=== PATIENT | male | born 1945 | race Caucasian/White ===

== ENCOUNTER → 2018-05-23 | Outpatient (CLI) | payer MEDICARE ==
[~2018-05-23] MED LIST: ASPIRIN81 M2 PO; CIPRO; DIFLUNISAL500 MG PO; LOPRESSOR; LOPRESSOR100 MG PO; MELOXICAM; MELOXICAM7.5 MG PO; METHOTREXATE; MOBIC15 MG PO; ORPHENADRINE C100 MG PO; PREDNISONE; PROTONIX; SIMVASTATIN; SIMVASTATIN20 MG PO; TREXALL10 MG PO; Z.0.FLOMAX0.4 MG PO; Z.0.LISINOPRIL20 MG PO; Z.0.LOPRESSOR50 MG MT; Z.0.METOPROLOL TART5 PO; Z.0.NEXIUM40 MG PO; Z.0.PLAVIX75 MG PO; Z.0.TRICOR145 MG PO; [UNRECOGNIZED DRUG - OTHER] PO
--- NOTE | 2018-05-23 13:11 | Diagnostic Imaging Report ---
EXAMINATION: PA and lateral views of the chest. COMPARISON: Chest radiograph 03/29/2012 CLINICAL HISTORY: Chest pain DISCUSSION: Lungs are well-inflated. No focal airspace consolidation, pleural effusion, or pneumothorax. Atherosclerotic calcification of the thoracic aorta with otherwise normal cardiomediastinal contour. No pulmonary edema. No acute osseous abnormalities. Unchanged healed fracture deformities of the posterior right fifth and left eighth ribs. Multilevel degenerative disc changes of the thoracic spine. IMPRESSION: No acute cardiopulmonary abnormalities. Signed by: Dr. Adam Schmidt M.D. on 05/23/2018 1:07 PM
== END ==
LOC: RAD 12:19
DX: R06.02 Shortness of breath (principal); R07.2 Precordial pain; G47.33 Obstructive sleep apnea (adult) (pediatric)
CPT/HCPCS: 71046

== ENCOUNTER → 2018-06-22 | Day surgery (SDC) | payer MEDICARE ==
[~2018-06-22] MED LIST changes: +CYMBALTA30 MG; +FENTANYL CITRATE/PF 100MCG/2 ML INJ ONE; +FOLIC ACID1 MG PO; +HYOSCYAMINE SULFATE 0.5 MG/ML INJ ONE; +ISOSORBIDE MONO20 MG PO; +METOCLOPRAMIDE HCL 10 MG/2ML VIAL ONE; +MIDAZOLAM HCL 2 MG/2 ML VIAL ONE; +PROPOFOL IV EMULSION 10 MG/ML 50 ML VIAL ONE; +TOPROL XL50 MG PO; +VSL#3 CAPSULE1 EACH; +ZANTAC150 MG
--- OUTSIDE RECORDS SUMMARY | 2018-06-22 11:03 | XMS REPORT | Clinical Summary ---
Author Author [facility] Organization [place] [facility] Address Unknown Phone Unavailable Care Team Providers Care Machine Set Up Technician Name Role Phone Janessa Zaldivar MD PCP Allergies Comments Active Allergy Reactions Severity Noted Date Severe coughing Lisinopril Other (See 07/09/2017 Comments) Medications End Date Status Medication Sig Dispensed Refills Start Date Active isosorbide mononitrate Take 60 mg by 0 (IMDUR) 60 MG 24 hr mouth daily. tablet Active metoprolol tartrate Take 100 mg 0 (LOPRESSOR) 100 mg tablet by mouth 2 (two) times a day. Active folic acid (FOLVITE) 1 MG Take 1 mg by 0 tablet mouth daily. Active methotrexate 2.5 MG Take 15 mg by 0 tablet mouth once a week. Wednesday Active aspirin (ECOTRIN) 81 MG Take 81 mg by 0 enteric coated tablet mouth daily. Active DULoxetine (CYMBALTA) 60 Take 60 mg by 0 MG capsule mouth daily. Active POTASSIUM ORAL Take by 0 mouth. Active MULTIVITAMIN ORAL Take by 0 mouth. Active cholecalciferol, vitamin Take by 0 D3, (VITAMIN D3 ORAL) mouth. Active ranitidine (ZANTAC) 150 Take 150 mg 0 MG tablet by mouth 2 (two) times a day. Active traMADol (ULTRAM) 50 mg 1 TAB PO Q12 1 tablet H PRN PAIN 8 07/05/2017 Discontinued pregabalin (LYRICA) 75 MG Take 75 mg by 0 capsule mouth 2 (two) times a day. 04/15/2018 Discontinued esomeprazole (NexIUM) 40 Take 40 mg by 0 MG capsule mouth daily before breakfast. 07/10/2017 Discontinued TRAMADOL HCL (TRAMADOL Take 100 mg 0 ORAL) by mouth daily as needed. 04/15/2018 Discontinued celecoxib (CeleBREX) 100 Take 100 mg 0 MG capsule by mouth 2 (two) times a day as needed. 07/09/2017 Discontinued methotrexate, PF, 15 Inject under 0 mg/0.3 mL auto-injector the skin. 04/15/2018 Discontinued tamsulosin (FLOMAX) 0.4 Take 1 0 mg capsule,extended capsule by 8 release 24hr mouth daily. 07/24/2017 HYDROcodone-acetaminophen Take 1 tablet 60 tablet 0 (NORCO) 5-325 mg per by mouth 8 tablet every 6 (six) hours as needed for severe pain for up to 14 days. Max Daily Amount: 4 tablets 08/09/2017 cyclobenzaprine Take 1 tablet 30 tablet 0 (FLEXERIL) 5 mg tablet (5 mg total) 8 by mouth 3 (three) times a day as needed for muscle spasms for up to 30 days. 04/09/2018 methylPREDNISolone follow 21 tablet 0 (MEDROL, BLAINE,) 4 mg package 8 tabletIndications: Status directions post lumbar laminectomy, Radicular pain, Spinal stenosis of lumbar region without neurogenic claudication Active Problems Problem Noted Date Lumbar radiculopathy 07/09/2017 Degeneration of lumbar intervertebral disc 06/18/2017 Overview: Added automatically from request for surgery [id number] Radicular pain 06/18/2017 Overview: Added automatically from request for surgery [id number] Spinal stenosis, lumbar region, with neurogenic claudication 06/18/2017 Overview: Added automatically from request for surgery [id number] Encounters Care Team Description Date Type Specialty Dinah Diallo NP 04/21/2018 Anesthesia General Surgery Event Alicia Cabral MD LUMBAR JONO LEFT L45, [id number] 04/21/2018 Surgery General Surgery Alicia Cabral MD 04/21/2018 Hospital General Surgery Encounter Alicia Cabral MD Pre-op testing (Primary Dx) 04/15/2018 Pre-Admit Pre-Admission Testing Testing Appointment Ty Martínez MD Radicular pain (Primary Dx); Status post lumbar laminectomy; Spinal stenosis of lumbar region without neurogenic claudication 04/04/2018 Office Visit Orthopedic Surgery Ty Martínez MD Neck pain (Primary Dx) 08/23/2017 Orders Only Orthopedic Surgery Ty Martínez MD Status post lumbar laminectomy (Primary Dx); Other osteoarthritis of spine, cervical region 08/19/2017 Office Visit Orthopedic Surgery Ty Martínez MD Status post lumbar laminectomy (Primary Dx) 07/22/2017 Office Visit Orthopedic Surgery Ty Martínez MD LUMBAR POSTERIOR DECOMPRESSION LAMINOTOMY LUMBAR FOUR- FIVE RIGHT. 07/09/2017 Surgery General Surgery Teresa Olivia, AUREA 07/09/2017 Anesthesia General Surgery Event Ty Martínez MD Degeneration of lumbar intervertebral disc; Radicular pain; Spinal stenosis, lumbar region, with neurogenic claudication 07/09/2017 [facility] General Internal Medicine - Encounter 07/10/2017 Ty Martínez MD Pre-op testing 07/05/2017 Hospital Radiology Encounter Ty Martínez MD Pre-op testing (Primary Dx) 07/05/2017 Pre-Admit Pre-Admission Testing Testing Appointment Kay Vasquez 06/25/2017 Telephone Orthopedic Surgery [place] Bennett 06/25/2017 Telephone Pre-Admission Testing after 06/21/2017 Immunizations Name Dates Previously Given Next Due Influenza, Unspecified 01/24/2017 Pneumococcal, Unspecified 01/24/2017 Family History Medical History Relation Name Comments Cancer Father BLADDER, PROSTATE, SPREAD TO SPINE Cancer Mother COLON Relation Name Status Comments Father BLADDER AND PROSTATE Mother COLON CA Social History Date Tobacco Use Types Packs/Day Years Used Never Smoker Smokeless Tobacco: Never Used Alcohol Use Drinks/Week oz/Week Comments Yes OCASSIONAL PER PT Sex Assigned at Date Recorded Not on file Industry Job Start Date Occupation Not on file Not on file Not on file Travel End Travel History Travel Start No recent travel history available. Last Filed Vital Signs Time Taken Vital Sign Reading 04/21/2018 10:00 AM STATE EDIT[facility] Blood Pressure 168/90 04/21/2018 10:00 AM STATE EDITOR Pulse 63 04/21/2018 9:36 AM STATE EDITOR Temperature 36.3 C (97.3 F) 04/21/2018 10:00 AM STATE EDITOR Respiratory Rate 24 04/21/2018 10:00 AM STATE EDITOR Oxygen Saturation 97% - Inhaled Oxygen - Concentration 04/21/2018 6:21 AM STATE EDITOR Weight 119 kg (262 lb) 04/21/2018 6:21 AM STATE EDITOR Height 180.3 cm (5' 11") 04/21/2018 6:21 AM STATE EDITOR Body Mass Index 36.54 Plan of Treatment Health Maintenance Due Date Last Done Comments COLON CANCER SCREENING 1997 SHINGLES VACCINES (#1) 1997 PNEUMOCOCCAL 2012 POLYSACCHARIDE VACCINE AGE 65 AND OVER INFLUENZA VACCINE 11/24/2017 01/24/2017 65+ PNEUMOCOCCAL VACCINE 01/24/2018 01/24/2017 (2 of 2 - PPSV23) Procedures Comments Procedure Name Priority Date/Time Associated Diagnosis OR FL < 1 HOUR Routine 04/21/2018 9:20 AM STATE EDITOR ECG PRE/POST OP Routine 04/15/2018 Pre-op testing 9:26 AM STATE EDITOR XR LUMBAR SPINE 2 OR 3 VW Routine 04/04/2018 Status post lumbar 9:57 AM STATE EDITOR laminectomy OR FL > 1 HOUR Routine 07/09/2017 10:49 AM CDT ARTERIAL LINE Routine 07/09/2017 9:21 AM CDT Procedure Note - Duke Werner MD - 07/09/2017 9:21 AM CDT Arterial line Performed by: DUKE WERNER Authorized by: DUKE WERNER Patient Location: OR Staff: Anesthesio logist: DUKE WERNER Performed by: Anesthesio logist Pre-proced ure: patient identified , IV checked, site and side verified, risks and benefits discussed, procedure verified, surgical consent complete, patient position confirmed, monitors and equipment checked and pre-op evaluation complete MSBT: antiseptic used, all elements of maximal sterile barrier technique followed, hand hygiene performed, cap/gown used by other personnel and solutions labeled Indication s: Indication s: hemodynami c monitoring Anesthesia : Anesthesia : General Procedure Details: Arterial Line placement: Placed post induction Line placement site: Radial Line placement side: Right Arterial line gauge: 20 G Number of attempts: 1 Ultrasound guidance used: No Post-proce dure: Post-proce dure: Sterile dressing applied Post procedure circulatio n, sensation, movement: Normal Patient tolerance: Patient tolerated the procedure well with no immediate complicati ons ARTERIAL LINE Routine 07/09/2017 8:53 AM CDT Procedure Note - Zeb Hernández CRNA - 07/09/2017 8:53 AM CDT Arterial line Performed by: ZEB HERNÁNDEZ Authorized by: DUKE WERNER Patient Location: OR Start Time: 07/09/2017 7:55 AM End Time: 07/09/2017 7:59 AM Staff: Anesthesio logist: DUKE WERNER/C RNA/AA: ZEB HERNÁNDEZ Performed by: Anesthesio logist Pre-proced ure: patient identified , IV checked, site and side verified, risks and benefits discussed, procedure verified, surgical consent complete, patient position confirmed, monitors and equipment checked and pre-op evaluation complete MSBT: antiseptic used and hand hygiene performed TIme Out Performed: 07/09/2017 7:54 AM Indication s: Indication s: hemodynami c monitoring Anesthesia : Anesthesia : General Procedure Details: Arterial Line placement: Placed post induction Line placement site: Radial Line placement side: Right Arterial line gauge: 20 G Number of attempts: 1 Ultrasound guidance used: No Post-proce dure: Post-proce dure: Sterile dressing applied Post procedure circulatio n, sensation, movement: Normal Patient tolerance: Patient tolerated the procedure well with no immediate complicati ons AK AN ELECTIVE Routine 07/09/2017 ENDOTRACHEAL AIRWAY 8:50 AM CDT Procedure Note - Zeb Hernández CRNA - 07/09/2017 8:50 AM CDT Airway Date/Time: 07/09/2017 7:46 AM Performed by: ZEB HERNÁNDEZ Authorized by: DUKE WERNER Location: OR Urgency: Elective Difficult Airway: No Anesthesio logist: DUKE WERNER/C IRIS/AA: ZEB HERNÁNDEZ Performed by: resident/C IRIS/AA Preoxygena lisa with 100% O2: Yes C-spine Precaution s Maintained Throughout : Yes Mask Ventilatio n: Easy mask Final Airway Type: Endotrache al airway Final Endotrache al Airway: ETT Technique Used: Direct laryngosco py Devices/Me thods Used in Placement: Intubatin g stylet Insertion Site: Oral Blade Type: Layne Laryngosco pe Blade/Vide olaryngosc ope Blade Size: 3 ETT Size (mm): 8.0 Measured from: Lips ETT to Lips (cm): 23 Placement Verified by: CO2 detection and equal breath sounds Laryngosco pic view: Grade IIb - view of arytenoids or posterior of glottis only Rapid Sequence Induction (RSI): No Modified RSI: Yes Number of Attempts at Approach: 1 Atraumati c DL; lips/teeth /gums unchanged. URINALYSIS SCREEN AND Timed 07/09/2017 Degeneration of lumbar MICROSCOPY, WITH REFLEX 7:55 AM CDT intervertebral disc TO CULTURE Radicular pain Spinal stenosis, lumbar region, with neurogenic claudication URINE CULTURE Timed 07/09/2017 7:55 AM CDT POC GLUCOSE Routine 07/09/2017 7:05 AM CDT XR CHEST 2 VW Routine 07/05/2017 Pre-op testing 10:50 AM CDT ZZESTIMATED GFR Routine 07/05/2017 10:22 AM CDT PROTHROMBIN TIME WITH INR Routine 07/05/2017 Pre-op testing 10:22 AM CDT PARTIAL THROMBOPLASTIN Routine 07/05/2017 Pre-op testing TIME (PTT) 10:22 AM CDT COMPREHENSIVE METABOLIC Routine 07/05/2017 Pre-op testing PANEL 10:22 AM CDT HC COMPLETE BLD COUNT Routine 07/05/2017 Pre-op testing W/AUTO DIFF 10:22 AM CDT after 06/21/2017 Results * OR FL < 1 Hour (04/21/2018 9:20 AM STATE EDITOR) Narrative Performed At EXAMINATION:OR FL 1 HOUR [facility] CLINICAL HISTORY: Intraoperative COMPARISON:None. IMPRESSION: C-arm fluoroscopy over 1 hour was provided in the OR for the referring physician. A radiologist was not present during the procedure. Refer to the Operative report issued by the performing provider for procedure details. H [id number] Procedure Note Interface, Radiology Results Incoming - 04/21/2018 3:42 PM STATE EDITOR EXAMINATION: OR FL 1 HOUR CLINICAL HISTORY: Intraoperative COMPARISON: None. IMPRESSION: C-arm fluoroscopy over 1 hour was provided in the OR for the referring physician. A radiologist was not present during the procedure. Refer to the Operative report issued by the performing provider for procedure details. [id number] Performing Organization Address [facility] Phone Number [facility] [address] [place] [address] * ECG Pre/Post Op (04/15/2018 9:26 AM STATE EDITOR) Ventricular rate 51 [facility] Atrial rate 51 [facility] AK interval 130 [facility] QRSD interval 100 [facility] QT interval 484 [facility] QTC interval 446 [facility] P axis 1 56 [facility] QRS axis 1 49 [facility] T wave axis 115 [facility] EKG impression Sinus bradycardia-Nonspecific [facility] MUSE T wave abnormality-Abnormal ECG-No previous ECGs available- Narrative Performed At Performing Organization Address [facility] Phone Number [facility] MUSE [address] [place] [address] * XR Lumbar Spine 2 Or 3 Vw (04/04/2018 9:57 AM STATE EDITOR) Narrative Performed At [facility] X-ray lumbar spine multiple views.Multilevel facet degeneration disc space degeneration and bridging osteophytes. Worse at the L3-4, L4-5 and L5-S1 segment. No fractures or bony erosions visualized. Laminotomy defect is visualized. Flexion extension views did not show any translation at the surgical levels or any other level. No pars fracture visualized. Performing Organization Address [facility] Phone Number [facility] [address] [place] [address] * OR FL > I Hour (07/09/2017 10:49 AM CDT) Narrative Performed At EXAMINATION:OR FL 1 HOUR [facility] CLINICAL HISTORY:None provided IMPRESSION: Fluoroscopy was provided. No radiologist present.Please see procedure report for discussion of procedure, findings and fluoroscopic time. [facility]-[id number] Procedure Note Interface, Radiology Results Incoming - 07/09/2017 10:56 AM CDT EXAMINATION: OR FL 1 HOUR CLINICAL HISTORY: None provided IMPRESSION: Fluoroscopy was provided. No radiologist present. Please see procedure report for discussion of procedure, findings and fluoroscopic time. [facility]-[id number] Performing Organization Address [facility] Phone Number [facility] [address] [place] [address] * Urinalysis screen and microscopy, with reflex to culture (07/09/2017 7:55 AM CDT) Specimen site Catheterized [facility] DEPARTMENT OF PATHOLOGY AND GENOMIC MEDICINE Color, UA Yellow [facility] DEPARTMENT OF PATHOLOGY AND GENOMIC MEDICINE Appearance, UA Clear [facility] DEPARTMENT OF PATHOLOGY AND GENOMIC MEDICINE Specific gravity, UA 1.015 1.001 - 1.030 [facility] DEPARTMENT OF PATHOLOGY AND GENOMIC MEDICINE pH, UA 7.0 5.0 - 9.0 [facility] DEPARTMENT OF PATHOLOGY AND GENOMIC MEDICINE Protein, UA Negative Negative [facility] DEPARTMENT OF PATHOLOGY AND GENOMIC MEDICINE Glucose, UA Negative Negative [facility] DEPARTMENT OF PATHOLOGY AND GENOMIC MEDICINE Ketones, UA Negative Negative [facility] DEPARTMENT OF PATHOLOGY AND GENOMIC MEDICINE Bilirubin, UA Negative Negative [facility] DEPARTMENT OF PATHOLOGY AND GENOMIC MEDICINE Blood, UA Negative Negative [facility] DEPARTMENT OF PATHOLOGY AND GENOMIC MEDICINE Nitrite, UA Negative Negative [facility] DEPARTMENT OF PATHOLOGY AND GENOMIC MEDICINE Urobilinogen, UA <2.0 <2.0 E.U./dL [facility] DEPARTMENT OF PATHOLOGY AND GENOMIC MEDICINE Leukocyte esterase, UA Negative Negative [facility] DEPARTMENT OF PATHOLOGY AND GENOMIC MEDICINE Epithelial cells, UA <1 /HPF [facility] DEPARTMENT OF PATHOLOGY AND GENOMIC MEDICINE WBC, UA 4 (H) 0 - 1 /HPF [facility] DEPARTMENT OF PATHOLOGY AND GENOMIC MEDICINE RBC, UA 1 0 - 1 /HPF [facility] DEPARTMENT OF PATHOLOGY AND GENOMIC MEDICINE Bacteria, UA Few None seen [facility] DEPARTMENT OF PATHOLOGY AND GENOMIC MEDICINE Yeast, UA None seen [facility] DEPARTMENT OF PATHOLOGY AND GENOMIC MEDICINE Yeast with pseudohyphae, None seen [facility] DEPARTMENT OF UA PATHOLOGY AND GENOMIC MEDICINE Specimen Urine - Urine, catheter Performing Organization Address [facility] [place] [address] PATHOLOGY AND GENOMIC MEDICINE * Urine culture (07/09/2017 7:55 AM CDT) Urine culture SEE COMMENTComment: [facility] DEPARTMENT OF Bacteriuria screen negative. PATHOLOGY AND GENOMIC MEDICINE Performing Organization Address [facility] [place] [address] PATHOLOGY AND GENOMIC MEDICINE * POC glucose (07/09/2017 7:05 AM CDT) POC glucose 101 (H) 65 - 99 mg/dL [facility] DEPARTMENT OF Comment: PATHOLOGY AND No Action Needed GENOMIC MEDICINE Meter ID: [id number] Brim Ironer Hand: Cassy Kathy Performing Organization Address City/[facility]/Zipcode Phone Number [facility] [place] [address] [place] [address] PATHOLOGY AND GENOMIC MEDICINE * XR Chest 2 Vw (07/05/2017 10:50 AM CDT) Narrative Performed At EXAMINATION:XR CHEST 2 VW [facility] CLINICAL HISTORY:Z01.818 Encounter for other preprocedural examination, pre op testing IMPRESSION: Heart and mediastinum are normal. Lungs are clear. There is a healed fracture of the right fifth rib. [facility]-[id number] Procedure Note Interface, Radiology Results Incoming - 07/05/2017 10:57 AM CDT EXAMINATION: XR CHEST 2 VW CLINICAL HISTORY: Z01.818 Encounter for other preprocedural examination, pre op testing IMPRESSION: Heart and mediastinum are normal. Lungs are clear. There is a healed fracture of the right fifth rib. [facility]-[id number] Performing Organization Address [facility] Phone Number [facility] [address] [place] [address] * Estimated GFR (07/05/2017 10:22 AM CDT) GFR Non Af Amer 83 mL/min/1.73 m2 [facility] DEPARTMENT OF PATHOLOGY AND GENOMIC MEDICINE GFR Af Amer >90 mL/min/1.73 m2 [facility] DEPARTMENT OF Comment: PATHOLOGY AND Chronic kidney disease: <60 GENOMIC MEDICINE mL/min/1.73m2 Kidney failure: <15 mL/min/1.73m2 The estimated GFR is calculated from the IDMS-traceable Modification of Diet in Renal Disease Equation. The accuracy of the calculation is poor when the creatinine is normal. Calculated values >90 mL/min/1.73m2 are not reported. This equation has not been validated in children (<18 years), women, the elderly (>70 years), or ethnic groups other than Caucasians and Americans. Specimen Plasma specimen Performing Organization Address [facility]/Zipcode Phone Number [facility] [place] [address] [place] [address] PATHOLOGY AND GENOMIC MEDICINE * Partial thromboplastin time, activated (07/05/2017 10:22 AM CDT) PTT 29.5 23.0 - 36.0 sec [facility] DEPARTMENT OF Comment: PATHOLOGY AND PTT therapeutic range for GENOMIC MEDICINE unfractionated heparin is 61.0-112.0 seconds which corresponds to Anti-Xa 0.3-0.7 U/ml. Specimen Blood Performing Organization Address City/[facility]/[place] [address] PATHOLOGY [address] [employer] [facility] * Prothrombin time with INR (07/05/2017 10:22 AM CDT) Prothrombin time 14.3 12.0 - 15.0 sec [facility] DEPARTMENT OF PATHOLOGY AND GENOMIC MEDICINE INR 1.1 [facility] DEPARTMENT OF Comment: PATHOLOGY AND The International Normalized [facility] Ratio (INR) is a therapeutic monitoring tool for patients who are stable on oral anticoagulant therapy. An INR of 2.0-3.0 is suggested for deep vein thrombosis/pulmonary embolism. Specimen Blood Performing Organization Address [facility] [place] [address] PATHOLOGY [address] [employer] [facility] * CBC with platelet and differential (07/05/2017 10:22 AM CDT) WBC 8.8 4.5 - 11.0 k/uL [facility] DEPARTMENT OF PATHOLOGY AND GENOMIC MEDICINE RBC 4.88 4.40 - 6.00 m/uL [facility] DEPARTMENT OF PATHOLOGY AND GENOMIC MEDICINE HGB 14.2 14.0 - 18.0 g/dL [facility] DEPARTMENT OF PATHOLOGY AND GENOMIC MEDICINE HCT 43.9 41.0 - 51.0 % [facility] DEPARTMENT OF PATHOLOGY AND GENOMIC MEDICINE MCV 90.0 82.0 - 100.0 fL [facility] DEPARTMENT OF PATHOLOGY AND GENOMIC MEDICINE MCH 29.1 27.0 - 34.0 pg [facility] DEPARTMENT OF PATHOLOGY AND GENOMIC MEDICINE MCHC 32.3 31.0 - 37.0 g/dL [facility] DEPARTMENT OF PATHOLOGY AND GENOMIC MEDICINE RDW - SD 46.0 37.0 - 55.0 fL [facility] DEPARTMENT OF PATHOLOGY AND GENOMIC MEDICINE MPV 9.8 6.9 - 11.0 fL [facility] DEPARTMENT OF PATHOLOGY AND GENOMIC MEDICINE Platelet count 265 150 - 400 K/uL [facility] DEPARTMENT OF PATHOLOGY AND GENOMIC MEDICINE Nucleated RBC 0.00 /100 WBC [facility] DEPARTMENT OF PATHOLOGY AND GENOMIC MEDICINE Neutrophils 71.4 (H) 39.0 - 69.0 % [facility] DEPARTMENT OF PATHOLOGY AND GENOMIC MEDICINE Lymphocytes 15.5 (L) 25.0 - 45.0 % [facility] DEPARTMENT OF PATHOLOGY AND GENOMIC MEDICINE Monocytes 9.9 0.0 - 10.0 % [facility] DEPARTMENT OF PATHOLOGY AND GENOMIC MEDICINE Eosinophils 1.9 0.0 - 5.0 % [facility] DEPARTMENT OF PATHOLOGY AND GENOMIC MEDICINE Basophils 0.8 0.0 - 1.0 % [facility] DEPARTMENT OF PATHOLOGY AND GENOMIC MEDICINE Immature granulocytes 0.5 0.0 - 1.0 % [facility] DEPARTMENT OF PATHOLOGY AND GENOMIC MEDICINE Specimen Blood Performing Organization Address City/[facility] Phone Number [address] [place] [address] PATHOLOGY AND GENOMIC MEDICINE * Comprehensive metabolic panel (07/05/2017 10:22 AM CDT) Sodium 140 135 - 148 mEq/L [facility] DEPARTMENT OF PATHOLOGY AND GENOMIC MEDICINE Potassium 3.9 3.5 - 5.0 mEq/L [facility] DEPARTMENT OF PATHOLOGY AND GENOMIC MEDICINE Chloride 98 98 - 112 mEq/L [facility] DEPARTMENT OF PATHOLOGY AND GENOMIC MEDICINE CO2 30 24 - 31 mEq/L [facility] DEPARTMENT OF PATHOLOGY AND GENOMIC MEDICINE Anion gap 12 7 - 15 mEq/L [facility] DEPARTMENT OF Comment: PATHOLOGY AND Starting from July GENOMIC MEDICINE , anion gap calculation no longer incorporates potassium. Please note the change. BUN 15 8 - 23 mg/dL [facility] DEPARTMENT OF PATHOLOGY AND GENOMIC MEDICINE Creatinine 0.9 0.7 - 1.2 mg/dL [facility] DEPARTMENT OF PATHOLOGY AND GENOMIC MEDICINE Glucose 111 (H) 65 - 99 mg/dL [facility] DEPARTMENT OF PATHOLOGY AND GENOMIC MEDICINE Calcium 8.9 8.8 - 10.2 mg/dL [facility] DEPARTMENT OF PATHOLOGY AND GENOMIC MEDICINE Protein 7.2 6.3 - 8.3 g/dL [facility] DEPARTMENT OF PATHOLOGY AND GENOMIC MEDICINE Albumin 4.1 3.5 - 5.0 g/dL [facility] DEPARTMENT OF PATHOLOGY AND GENOMIC MEDICINE A/G ratio 1.3 0.7 - 3.8 [facility] DEPARTMENT OF PATHOLOGY AND GENOMIC MEDICINE Alkaline phosphatase 93 40 - 129 U/L [facility] DEPARTMENT OF PATHOLOGY AND GENOMIC MEDICINE AST 22 10 - 50 U/L [facility] DEPARTMENT OF PATHOLOGY AND GENOMIC MEDICINE ALT 31 5 - 50 U/L [facility] DEPARTMENT OF PATHOLOGY AND GENOMIC MEDICINE Total bilirubin 0.5 0.2 - 1.2 mg/dL [facility] DEPARTMENT OF PATHOLOGY AND GENOMIC MEDICINE Specimen Plasma specimen Performing Organization Address City/[facility] Phone Number [address] [place] [address] PATHOLOGY AND GENOMIC MEDICINE after 06/21/2017 Insurance Payer Benefit Subscriber ID Type Phone Address Plan / Group MEDICARE MEDICARE xxxxxxxxxx Medicare [place], [place] PART A AND B AARP AARP xxxxxxxxxxx Commercial SUPPLEMENT Advance Directives Patient has advance care planning documents, and code status on file. For more i nformation, please contact: Ruiz Hagan [address] [place] [address] Date Inactivated Comments Code Status Date Activated 07/10/2017 1:42 PM Full Code 07/09/2017 1:39 PM Code Status decision reached by: Patient
--- OUTSIDE RECORDS SUMMARY | 2018-06-22 11:03 | XMS REPORT ---
Author Author [facility] Address Unknown Phone Unavailable Care Team Providers Care [employer] Dean Name Role Phone HERMELINDA LIVINGSTON Unavailable Unavailable AVILES, LYLYHEJESSI Unavailable Unavailable Problems This patient has no known problems. Allergies, Adverse Reactions, Alerts This patient has no known allergies or adverse reactions. Medications This patient has no known medications. Results Test Description Test Time Test Comments Text Results Atomic Results Result Comments CHEST 2 VIEWS 2018-05-23 13:04:00 [place] [address] Patient Name: FRANK COLON MR #: [id number] : 1945 Age/Sex: 72/M Req #: [id number] Adm Physician: Ordered by: HERMELINDA LIVINGSTON MD Report #: [id number] Location: [facility] Room/Bed: Procedure: [id number] DX/CHEST 2 VIEWS Exam Date: 05/23/18 Exam Time: 1247 REPORT STATUS: Signed EXAMINATION: PA and lateral views of the chest. COMP ARISON: Chest radiograph 03/29/2012 CLINICAL HISTORY: Chest pain DISCUSSION: Lungs are well-inflated. No focal airspace consolidation, pleural effusion, or pneumothorax. Atherosclerotic calcification of the thoracic aorta with otherwise normal cardiomediastinal contour. No pulmonary edema. No acute osseous abnormalities. Unchanged healed fracture deformities of the posterior right fifth and left eighth ribs. Multilevel degenerative disc changes of the thoracic spine. IMPRESSION: No acute cardiopulmonary abnormalities. Signed by: Dr. Vickie Dumont M.D. on 05/23/2018 1:07 PM Dictated By: VICKIE DUMONT MD 06 Transcribed By: VINAY on 05/23/182 COPY TO: HERMELINDA LIVINGSTON MD ABDOMEN-1VIEW (KUB) [place] [address] Patient Name: FRANK COLON MR #: [id number] : 1945 Age/Sex: 71/M Req #: [id number] Adm Physician: JOSIE AVILES MD Ordered by: JOSIE AVILES MD Report #: [id number] Location: [facility] Room/Bed: [facility] Procedure: [id number] DX/ABDOMEN-1VIEW (KUB) Exam Date: Exam Time: REPORT STATUS: Signed PROCEDURE: X-RAY ABDOMEN - KUB COMPARISON: CT abdomen and pelvis 01/16/2017. INDICATIONS: acute colitis, bloating, FINDINGS: The bowel gas pattern shows several dilated, air-filled loops of small bowel to a maximum caliber of 4.5 cm. Gas is also noted within the sigmoid colon. No alonso pneumoperitoneum or organomegaly. Surgical clips project over the right upper quadrant of the abdomen, compatible with prior cholecystectomy. Nonobstructing renal calculi are seen to better advantage on comparison CT. No acute osseous abnormality. Degenerative disc changes and facet arthropathy of the lumbar spine. CONCLUSION: Nonspecific small bowel dilatation, similar in degree to that noted on CT abdomen 01/16/2017. Findings may reflect ileus or partial small bowel obstruction. Dictated by: Vickie Dumont M.D. on 01/18/2017 at 13:35 Electronically approved by: Vickie Dumont M.D. on 01/18/2017 at 13:35 Dictated By: VICKIE DUMONT MD 34 Transcribed By: NAKIA on 01/18/17 1335 COPY TO: JOSIE AVILES MD CT ABDOMEN/PELVIS W [place] [address] Patient Name: FRANK COLON MR #: [id number] : 1945 Age/Sex: 71/M Req #: [id number] Adm Physician: JOSIE AVILES MD Ordered by: DIEGO POSADAS MD Report #: [id number] Location: [facility] Room/Bed: [place] [address] Procedure: [id number] CT/CT ABDOMEN/PELVIS W Exam Date: 01/16/17 Exam Time: 1450 REPORT STATUS: Signed EXAMINATION: CT of the abdomen and pelvis with contrast. TECHNIQUE: Helical CT images of the abdomen and pelvis were performed from the lung bases to the lesser trochanters after the intravenous administration of 100 cc of Isovue 300 and the oral administration of none. Coronal and sagittal reformatted images were obtained. COMPARISON: None. CLINICAL HISTORY:Diffuse abdominal pain and diarrhea DISCUSSION: ABDOMEN/PELVIS: LOWER THORAX:Unremarkable. HEPATOBILIARY: No focal hepatic lesions. No intra-or extrahepatic biliary ductal dilation. Cholecystectomy. SPLEEN: No splenomegaly. PANCREAS: No focal masses or ductal dilatation. ADRENALS: No adrenal nodules. KIDNEYS/URETERS: Bilateral nonobstructing renal calculi (approximately 4 bilaterally. No hydronephrosis. PELVIC ORGANS/BLADDER: The bladder is normal. PERITONEUM/RETROPERITONEUM: No free air or fluid. LYMPH NODES: No intra-abdominal, retroperitoneal, pelvic or inguinal lymphadenopathy. VESSELS: Basilar calcifications. GI TRACT: Fluid- filled loops of prominent proximal small bowel measuring up to 4.5 cm. No visualized transition point. BONES AND SOFT TISSUE: No bony destructive lesions. No soft tissue abnormalities. IMPRESSION: Dilated fluid-filled small bowel loops without obstruction/transition point. Nonobstructing bilateral renal calculi Signed by: Dr. Rosas Zimmer M.D. on 01/16/2017 4:05 PM Dictated By: ROSAS ZIMMER MD 1608 Transcribed By: VINAY on 01/16/17 1600 COPY TO: DIEGO POSADAS MD
[2018-06-22 15:00] VITALS: BP 182/91
[2018-06-22 15:00] LABS: WBC,FECAL (FECAL LACTOFERRIN) NEGATIVE (NEGATIVE)
--- NOTE | 2018-06-22 22:59 | Operative Report ---
DATE OF PROCEDURE: 06/22/2018 SURGEON: Alexis Zaldivar MD PROCEDURES: EGD with biopsies and colonoscopy with biopsies. INDICATIONS FOR EGD: Recurrent nausea and vomiting. INDICATIONS FOR COLONOSCOPY: Colorectal cancer screening, chronic diarrhea. MEDICATION: The patient was done under MAC. Please see anesthesiologist's note. PROCEDURE IN DETAIL: With the patient in the left lateral decubitus position, a flexible fiberoptic Olympus gastroscope was introduced into the esophagus under direct visualization without any difficulty. There was some patchy erythema noted in the distal esophagus. The scope was advanced with ease into the stomach and mucosa overlying the antrum and the body revealed some patchy erythema and sqrx-wp-[id number] edema and biopsies were obtained and sent to stain for H pylori. An approximately 1 cm submucosal nodule was noted in the proximal body along the posterior wall and that was biopsied. An additional submucosal nodule was noted in the proximal antrum along the posterior wall and that was biopsied also. The pylorus was of normal contour and shape. It was intubated with ease and the scope was advanced all the way to the 2nd portion of the duodenum. Minute superficial ulcers were noted in the proximal 2nd portion and the duodenal bulb without active bleeding or stigmata of recent hemorrhage. The scope was then withdrawn back into the stomach and retroflexed. Mucosa overlying the fundus and the cardia appeared to be within normal limits. The scope was then straightened out. The stomach was decompressed. The scope was subsequently withdrawn and the patient tolerated the procedure well. IMPRESSION: 1. Mild distal esophagitis. 2. Gastritis biopsied. Biopsies sent to stain for Helicobacter pylori. 3. Approximately 1 cm submucosal nodule, proximal body, posterior wall, biopsied. 4. Submucosal nodule, proximal antrum, posterior wall approximately 1 cm in size, biopsied. 5. Several superficial minute duodenal ulcers without active bleeding or stigmata of recent hemorrhage. PLAN: Followup histology. Initiate Protonix 40 mg one p.o. q.a.m. a.c. The patient was then turned around. After adequate lubrication of the anal canal, a flexible fiberoptic Olympus colonoscope was inserted into the rectum with ease and advanced all the way to the cecum. Mucosa overlying the cecum appeared to be within normal limits. The scope was then withdrawn slowly. Diverticular disease was noted to involve the ascending and the proximal transverse colon, and some minimal scattered diverticula were noted in the rest of the colon. Mucosa overlying the left colon revealed some patchy mild inflammatory changes and multiple random biopsies were obtained. The scope was then retroflexed into the distal rectum and moderate-sized internal hemorrhoids were noted. None of which was actively bleeding. The scope was then straightened out, it was subsequently withdrawn after securing an adequate stool specimen that was sent for the appropriate stool studies. The patient tolerated the procedure well. IMPRESSION: 1. Diverticulosis. 2. Mild patchy left-sided colitis. 3. Internal hemorrhoids, none actively bleeding. PLAN: Followup histology. Initiate VSL #3, one p.o. daily and Bentyl 10 mg one p.o. t.i.d. The patient might benefit from a followup colonoscopy in 5-10 years. Alexis Zaldivar MD [facility] [place] /[id number] cc: Mio Zaldivar MD
[2018-06-23 14:07] LABS: C DIFFICILE TOXIN A&B AMP PROB NEGATIVE (NEGATIVE)
== END | disposition home or self-care (01) ==
LOC: OR 10:57
PROVIDERS: ATTEND Internal Medicine Gastroenterology
DX: K29.70 Gastritis, unspecified, without bleeding (principal); K21.0 Gastro-esophageal reflux disease with esophagitis; K31.89 Other diseases of stomach and duodenum; K26.9 Duodenal ulcer, unspecified as acute or chronic, without hemorrhage or perforation; K51.50 Left sided colitis without complications; K57.30 Diverticulosis of large intestine without perforation or abscess without bleeding; K64.8 Other hemorrhoids; R53.1 Weakness; I25.10 Atherosclerotic heart disease of native coronary artery without angina pectoris; I25.2 Old myocardial infarction; I10 Essential (primary) hypertension; R00.1 Bradycardia, unspecified; M06.9 Rheumatoid arthritis, unspecified; Z88.8 Allergy status to other drugs, medicaments and biological substances; Z79.82 Long term (current) use of aspirin; Z79.84 Long term (current) use of oral hypoglycemic drugs; Z68.36 Body mass index [BMI] 36.0-36.9, adult; Z96.659 Presence of unspecified artificial knee joint; Z95.5 Presence of coronary angioplasty implant and graft; Z80.0 Family history of malignant neoplasm of digestive organs
CPT/HCPCS: 43239; 45380; 83630; 83993; 87045; 87177; 87328; 87493; 88305; 88312; J1980; J2250; J2704; J2765; 45378

== ENCOUNTER 2019-05-11 07:19 | Observation (INO) | payer MEDICARE ==
--- NOTE | 2019-05-09 15:45 | Diagnostic Imaging Report ---
EXAMINATION: CHEST 2 VIEWS INDICATION: Pre-operative COMPARISON: Chest radiograph of 05/15/2018 FINDINGS: LINES/TUBES:None LUNGS:The lungs are well-inflated. No focal consolidation or pulmonary edema. PLEURA:No pleural effusion or pneumothorax. MEDIASTINUM:The cardiomediastinal silhouette appears normal in size and shape. BONES/SOFT TISSUES:No acute osseous injury. ABDOMEN:No free air under the diaphragm. IMPRESSION: No focal pneumonia or pulmonary edema. Signed by: Naya Grimaldo MD on 05/09/2019 3:42 PM
[2019-05-09 16:11] LABS: BASOPHILS # (AUTO) 0.1 (0.0-0.1); EOSINOPHILS # (AUTO) 0.2 (0.0-0.4); EOSINOPHILS % 2.6 % (0.0-6.0); HEMATOCRIT 49.5 % (38.2-49.6); HEMOGLOBIN 15.8 g/dL (14.0-18.0); LYMPHOCYTES # (AUTO) 2.3 (1.0-3.2); MEAN CORPUSCULAR HEMOGLOBIN 29.5 pg (28-32); MEAN CORPUSCULAR HGB CONC 31.9 g/dL (31-35); MEAN CORPUSCULAR VOLUME 92.4 fL (81-99); MONOCYTES # (AUTO) 1.1 (0.2-0.8); MONOCYTES % 12.1 % (4.4-11.3); NEUTROPHILS % 57.1 % (38.7-80.0); PLATELET COUNT 213 x10e3/uL (140-360); RED BLOOD COUNT 5.36 x10e6/uL (4.3-5.7); RED CELL DISTRIBUTION WIDTH 13.6 % (11.7-14.4)
[2019-05-09 16:22] LABS: INR 0.93
[2019-05-09 16:23] LABS: PARTIAL THROMBOPLASTIN TIME 29.2 seconds (23.8-35.5)
[2019-05-09 16:27] LABS: ANION GAP 14.6 mmol/L (8-16); BLOOD UREA NITROGEN 17 mg/dL (7-26); BUN/CREATININE RATIO 17 (6-25); CALCIUM 9.4 mg/dL (8.4-10.2); CARBON DIOXIDE 27 mmol/L (22-29); CHLORIDE 103 mmol/L (98-107); CREATININE, SERUM 1.01 mg/dL (0.72-1.25); EST GLOMERULAR FILTRATION RATE > 60 ML/MIN (60-); GLUCOSE 88 mg/dL (74-118); POTASSIUM 4.6 mmol/L (3.5-5.1); SODIUM 140 mmol/L (136-145)
[~2019-05-11] VITALS: Ht 180.3 cm; Wt 122.0 kg
[~2019-05-11 07:19] MED LIST changes: +COLESTIPOL HCL1 GM PO; +DICYCLOMINE HCL10 MG PO; -FENTANYL CITRATE/PF 100MCG/2 ML INJ ONE; -HYOSCYAMINE SULFATE 0.5 MG/ML INJ ONE; +LIDOCAINE HCL (LTA) 4 ML SOLN ONE; -METOCLOPRAMIDE HCL 10 MG/2ML VIAL ONE; -MIDAZOLAM HCL 2 MG/2 ML VIAL ONE; +PANTOPRAZOLE SO40 MG PO; -PROPOFOL IV EMULSION 10 MG/ML 50 ML VIAL ONE
[2019-05-11] MEDS ORDERED: THROMBIN FOR SOLN 5,000 UNIT VIAL ONE (08:16)
[2019-05-11] MEDS ORDERED: BACITRACIN 50,000 UNIT VIAL ONE (08:16)
[2019-05-11] MEDS ORDERED: LIDOCAINE 1% W/EPINEPHRINE 20 ML VIAL ONE (08:16)
[2019-05-11] MEDS ORDERED: CEFAZOLIN SOD 1 GM/NS 50ML 100 ML IV ONE (08:31)
[2019-05-11] MEDS ORDERED: OXYCODONE/ACETAMINOPHEN 5-325 1 EACH TABLET PO PRN (11:30)
[2019-05-11] MEDS ORDERED: ACETAMINOPHEN 325 MG TAB PO PRN (11:30)
[2019-05-11] MEDS ORDERED: MAGNESIUM/ALUMINUM/SIMETHICONE 30 ML UDC PO PRN (11:30)
[2019-05-11] MEDS ORDERED: PROMETHAZINE HCL (IM) 25 MG/ML VIAL IM PRN (11:30)
[2019-05-11] MEDS ORDERED: CARISOPRODOL 350 MG TAB PO PRN (11:30)
[2019-05-11] MEDS ORDERED: SUGAMMADEX SODIUM 200 MG/2 ML VIAL IV ONE (11:43)
[2019-05-11] MEDS ORDERED: FENTANYL CITRATE/PF 100MCG/2 ML INJ ONE ×2 (12:36→18:18)
[2019-05-11 13:35] VITALS: BP 179/83
[2019-05-11 13:40] VITALS: BP 179/83
--- NOTE | 2019-05-11 13:45 | NUR ---
PT ARRIVE TO UNIT RESP EVEN AND UNLABORED AT THIS TIME NO DISTRESS NOTED, PT HAS NO C/O PAIN AT THIS TIME, PT ABLE TO AMBULATE FROM STRETCHER TO BED, IV FLUIDS INTACT, PT ORIENTED TO ROOM AND CALL LIGHT, BED IN LOWEST POSITION, BED RAILS UP TIMES X 2. CALL LIGHT IN REACH.
[2019-05-11] MEDS ORDERED: MORPHINE SULFATE INJ 10 MG/ML IM PRN (14:00)
--- NOTE | 2019-05-11 14:56 | Operative Report ---
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 PROCEDURES: 1. C5-C6 anterior cervical diskectomy and microsurgical osteophyte resection and allograft fusion, 12160. 2. Preparation of MTF corticocancellous allograft, 45148. 3. C5-C6 anterior cervical fusion with Synthes DPM plate, 09897. ANESTHESIA: General. INDICATIONS: The patient is a 73-year-old man, who presents with C5-C6 spondylosis with myelopathy and was taken to surgery for anterior cervical decompression and fusion. PROCEDURE IN DETAIL: After induction of anesthesia, the patient was placed on the operating table in supine position. The right side of neck was prepped and draped in sterile fashion. The fluoroscopic C-arm was positioned in cross-table lateral orientation. A transverse incision was created in the right side of neck, superimposed on the C5-C6 disk space as determined by fluoroscopy. The platysma was divided in line with the incision. A subplatysmal dissection was carried out and avascular plane of dissection was developed medially in sternocleidomastoid muscle and was followed medial to the carotid sheath to the anterior border of cervical spine and the deep cervical fascia was opened. The esophagus was retracted to the left. The attachments of longus colli muscles to the anterolateral aspects of vertebral bodies of C5 and C6 were divided. The anterior longitudinal ligament was resected. Afton posts were inserted into C5 and C6. The Afton distractor was used to distract the disk space. The anterior annulus of the disk was incised with a #11 blade and the contents of this were thoroughly evacuated with angled curettes and pituitary rongeurs. The posterior osteophytes were meticulously drilled with a 2 mm cutting bur on a high-speed drill until they were completely removed. The posterior annulus of the disk, herniated disk material, and the posterior longitudinal ligament were resected layer by layer until the dura was fully exposed and decompressed. The medial aspects of the uncinate processes were resected to further expose any compressed origins of the corresponding C6 nerve roots. After satisfactory decompression had been achieved, the endplates were prepared for fusion. The disk space was sized and found to be 9 mm in height. A piece of MTF corticocancellous allograft measuring 9 mm in thickness was selected and loaded onto a corresponding Synthes ZPN plate. The construct was inserted into the C5-C6 disk space under distraction and fluoroscopic guidance. The distraction was released and the distraction posts were removed. The plate was then screwed to the endplates of C5 and C6 with two pairs of 16 mm screws. All four screws were locked and excellent construct was obtained. The wound was copiously irrigated with bacitracin solution, meticulous hemostasis was secured. Retractor was removed. The platysma was closed with 3-0 Vicryl sutures. The skin was closed with 4-0 Vicryl sutures in subcuticular fashion. Steri-Strips and dressing were applied. The patient was awakened, extubated, and taken to postanesthesia care in stable condition. No intraoperative complications were encountered. Estimated blood loss was 10 mL. Colt العلي MD PP/ROBERTO /[id number]
[2019-05-11] MEDS: COLESTIPOL HCL 1 G TAB PO SCH (16:09)
[2019-05-11] MEDS: CEFAZOLIN SOD 1 GM/NS 50ML 50 ML IV SCH ×2 (16:09→20:56)
[2019-05-11] MEDS: LACTATED RINGER'S 1,000 ML IV SCH ×2 (16:09→21:17)
[2019-05-11] MEDS: DICYCLOMINE HCL 10 MG CAP PO SCH ×2 (16:09→20:56)
[2019-05-11 16:43] VITALS: BP 150/67
[2019-05-11] MEDS: ONDANSETRON HCL INJ 2MG/ML 2ML 2 MG/ML VIAL IV PRN ×2 (17:04→21:17)
[2019-05-11] MEDS: HYDROMORPHONE 2MG/ML 2 MG/ML ML IV PRN ×2 (17:04→21:11)
[2019-05-11] MEDS ORDERED: SEVOFLURANE INHAL SOLN 250 ML PEN BTL ONE (17:52)
[2019-05-11] MEDS ORDERED: ACETAMINOPHEN 1000 MG/100 ML IV ONE (17:52)
[2019-05-11] MEDS ORDERED: SUCCINYLCHOLINE CHLORIDE 20 MG/ML 10ML VIAL ONE (17:52)
[2019-05-11] MEDS ORDERED: ONDANSETRON HCL INJ 2MG/ML 2ML 2 MG/ML VIAL ONE (17:52)
[2019-05-11] MEDS ORDERED: LIDOCAINE HCL 2% LOCAL INJ 5 ML SDV VIAL INJ ONE (17:52)
[2019-05-11] MEDS ORDERED: EPHEDRINE SULFATE INJ 50 MG/ML VIAL ONE (17:52)
[2019-05-11] MEDS ORDERED: LIDOCAINE HCL 2% JELLY 5 ML TUBE ONE (17:52)
[2019-05-11] MEDS ORDERED: DEXAMETHASONE SOD PHOS INJ 4 MG/ML VIAL ONE (17:52)
[2019-05-11] MEDS ORDERED: GLYCOPYRROLATE INJ 0.2 MG/ML VIAL ONE (17:52)
[2019-05-11] MEDS ORDERED: PROPOFOL IV EMULSION 10 MG/ML 20 ML VIAL ONE (17:52)
[2019-05-11] MEDS ORDERED: NEOSTIGMINE 1 MG/ML 10ML VIAL ONE (17:52)
[2019-05-11] MEDS ORDERED: ROCURONIUM BROMIDE 10 MG/ML 5ML VIAL ONE (17:52)
[2019-05-11] MEDS ORDERED: MIDAZOLAM HCL 2 MG/2 ML VIAL ONE (18:18)
--- NOTE | 2019-05-11 19:12 | NUR ---
RECEIVED BEDSIDE SHIFT REPORT FROM PREVIOUS NURSE. CALL LIGHT WITHIN REACH. PATIENT IN THE CHAIR. PATIENT IS A&OX3 AND AMBULATES.
--- NOTE | 2019-05-11 19:46 | NUR ---
report given to oncoming nurse pt stable at this time.
[2019-05-11 20:00] VITALS: BP 196/88
--- NOTE | 2019-05-11 20:00 | NUR ---
CALLED AND TALKED TO DR. HYDE ABOUT PATIENT HAVING A BLOOD PRESSURE OF 196/88 AND NOT HAVING ANY PRN BLOOD PRESSURE MEDICATION. DR HYDE ORDERED HYDRALAZINE 10 MG, PO PRN Q6H FOR SYSTOLIC >170
[2019-05-11 20:42] VITALS: BP 196/88
[2019-05-11] MEDS: HYDRALAZINE HCL 10 MG TAB PO PRN (20:57)
[2019-05-11] MEDS ORDERED: FAMOTIDINE 20 MG TAB PO SCH (21:00)
[2019-05-11] MEDS ORDERED: ZOLPIDEM TARTRATE 5 MG TAB PO PRN (21:00)
[2019-05-12] VITALS: BP 201/91
--- NOTE | 2019-05-12 01:00 | NUR ---
WENT TO THE PATIENT'S ROOM AND SAW THE PATIENT SITTING AT THE EDGE OF THE BED. RETOOK THE BLOOD PRESSURE ON THE LEFT ARM AND IT WAS 174/79 AND PULSE WAS 77. PATIENT IN NO PAIN OR DISTRESS.
[2019-05-12 04:00] VITALS: BP 186/82
[2019-05-12] MEDS: HYDRALAZINE HCL 10 MG TAB PO PRN (05:23)
[2019-05-12] MEDS: CEFAZOLIN SOD 1 GM/NS 50ML 50 ML IV SCH (05:24)
[2019-05-12] MEDS: LACTATED RINGER'S 1,000 ML IV SCH (05:29)
--- NOTE | 2019-05-12 06:28 | NUR ---
PATIENT LEFT VIA WHEELCHAIR FOR C-SPINE 2 VIEW. PATIENT IN NO PAIN OR DISTRESS.
--- NOTE | 2019-05-12 06:35 | NUR ---
PATIENT ARRIVED BACK TO THE UNIT VIA WHEELCHAIR. NO DISTRESS NOTED
--- NOTE | 2019-05-12 07:00 | NUR ---
RECEIVED PATIENT RESTING IN BED NO S/S OF DISTRESS. BED LOW, WHEELS LOCKED, SIDE RAILS X2. CALL LIGHT IN REACH WILL CONTINUE TO MONITOR PATIENT.
--- NOTE | 2019-05-12 07:10 | NUR ---
GAVE BEDSIDE SHIFT REPORT TO ONCOMING NURSE. CALL LIGHT WITHIN REACH. PATIENT IN THE CHAIR. PATIENT IN NO PAIN OR DISTRESS. PATIENT IS A&OX3 AND AMBULATES
[2019-05-12] MEDS: COLESTIPOL HCL 1 G TAB PO SCH (08:06)
[2019-05-12] MEDS: DICYCLOMINE HCL 10 MG CAP PO SCH (08:06)
[2019-05-12 08:07] VITALS: BP 193/86
[2019-05-12 08:33] VITALS: BP 193/86
[2019-05-12] MEDS ORDERED: METOPROLOL SUCCINATE 50 MG TAB XL PO SCH (09:00)
[2019-05-12] MEDS ORDERED: ISOSORBIDE MONONITRATE 20 MG TAB PO SCH (09:00)
[2019-05-12] MEDS ORDERED: PANTOPRAZOLE SOD 40 MG TABEC PO SCH (09:00)
[2019-05-12] MEDS ORDERED: DULOXETINE HCL 30 MG DELAYED RELEASE PO SCH (09:00)
--- NOTE | 2019-05-12 09:07 | Diagnostic Imaging Report ---
EXAMINATION: C-SPINE 2 VIEWS AP LATERAL INDICATION: Postoperative COMPARISON: None FINDINGS: There are postoperative findings of anterior cervical discectomy and fusion at C6-7. Alignment appears near-anatomic, with mild straightening of the normal cervical lordosis. There are multilevel severe degenerative changes with disc space narrowing, uncovertebral hypertrophy, and large osteophyte formation. No acute fracture or dislocation. Mild thickening and small amount of air in the prevertebral soft tissues, likely postoperative. The minimally visualized lung apices appear clear. IMPRESSION: Anatomic alignment status post anterior cervical discectomy and fusion at C6-7. Severe multilevel degenerative changes. Signed by: Naya Grimaldo MD on 05/12/2019 9:05 AM
[2019-05-12] MEDS ORDERED: NORCO 7.5-3251 EACH PO (09:23)
--- NOTE | 2019-05-12 10:09 | NUR ---
removed patients iv. catheter tip intact and pressure dressing applied.
--- NOTE | 2019-05-12 10:13 | NUR ---
PATIENT DISCHARGED FROM FACILITY. PATIENT GATHERED ALL PERSONAL BELONGINGS, DISCHARGE INSTRUCTIONS, AND FOLLOW UP INFORMATION. PATIENT LEFT UNIT IN WHEELCHAIR AND WENT HOME VIA PRIVATE AUTO.
== END 2019-05-12 10:13 | disposition home or self-care (01) ==
LOC: OR 07:19 → PACU V 11:34 → MED/SURG 13:35
PROVIDERS: ADMIT Neurological Surgery; ATTEND Neurological Surgery
DX: M50.022 Cervical disc disorder at C5-C6 level with myelopathy (principal); I10 Essential (primary) hypertension; E78.5 Hyperlipidemia, unspecified; M19.90 Unspecified osteoarthritis, unspecified site; I25.10 Atherosclerotic heart disease of native coronary artery without angina pectoris; Z90.49 Acquired absence of other specified parts of digestive tract; Z96.651 Presence of right artificial knee joint; Z90.10 Acquired absence of unspecified breast and nipple; Z79.82 Long term (current) use of aspirin; K21.9 Gastro-esophageal reflux disease without esophagitis; G47.33 Obstructive sleep apnea (adult) (pediatric); Z87.442 Personal history of urinary calculi
CPT/HCPCS: 20931; 22551; 22845; 36415; 71046; 72040; 80048; 85025; 85610; 85730; 86850; 86900; 88304; 93005; C1713 ×2; C9359; G0378 ×2; J0131; J0330; J0690 ×2; J1100; J1170; J2001 ×2; J2250; J2405; J2704; J2710; J3010; J7121 ×2; S0164; 77003

== ENCOUNTER → 2019-06-08 | Outpatient (CLI) | payer MEDICARE ==
[~2019-06-08] MED LIST changes: -LIDOCAINE HCL (LTA) 4 ML SOLN ONE; +NORCO 7.5-3251 EACH PO
--- NOTE | 2019-06-08 13:04 | Diagnostic Imaging Report ---
EXAM: SPINE CERVICAL AP LAT FLEX EXT DATE: 06/08/2019 11:35 AM INDICATION: Cervical fusion COMPARISON: 05/12/2019 FINDINGS: Again identified are postsurgical changes from prior anterior cervical discectomy and fusion at C5-C6. There is mild straightening of the normal cervical lordosis, cervical alignment is otherwise unremarkable. There is no evidence for acute fracture or dislocation. No focal lytic or blastic abnormality is identified. There are multilevel degenerative changes of the cervical spine with uncovertebral spurring, osteophyte production, and facet arthropathy. Findings are similar to the recent prior examination. The prevertebral soft tissues are unremarkable. IMPRESSION: Stable post surgical changes from anterior cervical fusion as detailed above. Signed by: Dr. Grady Bobo MD on 06/08/2019 1:02 PM
== END ==
LOC: RAD 11:17
PROVIDERS: ATTEND Neurological Surgery
DX: M50.20 Other cervical disc displacement, unspecified cervical region (principal); M43.22 Fusion of spine, cervical region
CPT/HCPCS: 72050

== ENCOUNTER → 2020-03-05 | Day surgery (SDC) | payer MEDICARE ==
[2020-02-29 14:32] LABS: BASOPHILS # (AUTO) 0.1 (0.0-0.1); BASOPHILS % 0.8 % (0.0-1.0); EOSINOPHILS # (AUTO) 0.2 (0.0-0.4); EOSINOPHILS % 1.8 % (0.0-6.0); HEMOGLOBIN 15.2 g/dL (14.0-18.0); LYMPHOCYTES # (AUTO) 2.4 (1.0-3.2); LYMPHOCYTES % 20.2 % (18.0-39.1); MEAN CORPUSCULAR HGB CONC 32.3 g/dL (31-35); MEAN CORPUSCULAR VOLUME 92.7 fL (81-99); MONOCYTES # (AUTO) 1.4 (0.2-0.8); NEUTROPHILS # (AUTO) 7.7 (2.1-6.9); NEUTROPHILS % 64.4 % (38.7-80.0); PLATELET COUNT 225 x10e3/uL (140-360); RED BLOOD COUNT 5.07 x10e6/uL (4.3-5.7)
[~2020-03-05] MED LIST changes: +ALLOPURINOL100 MG PO; +FAMOTIDINE20 MG PO; +FENTANYL CITRATE/PF 100MCG/2 ML INJ ONE; +FOLIC ACID PO; +LIDOCAINE HCL 2% LOCAL INJ 5 ML SDV VIAL INJ ONE; +METHOTREXATE2.5 MG PO; +METOCLOPRAMIDE HCL 10 MG/2ML VIAL ONE; +MIDAZOLAM HCL 2 MG/2 ML VIAL ONE; +MULTI-VITAMIN1 EACH PO; +PANTOPRAZOLE 40 MG 10ML VIAL ONE; +POTASSIUM PO; +PROPOFOL IV EMULSION 10 MG/ML 20 ML VIAL ONE; +SODIUM CHLORIDE 0.9% 50ML 50 ML ONE; +SUCRALFATE1 GM PO; +VIT D3 PO
[2020-03-05 14:30] VITALS: BP 143/80
--- NOTE | 2020-03-05 15:27 | Operative Report ---
DATE OF PROCEDURE: 03/05/2020 SURGEON: Alexis Zaldivar MD PROCEDURE: EGD with biopsies. INDICATIONS FOR EGD: Acid reflux. MEDICATIONS: The patient was done under MAC, please see anesthesiologist's note. PROCEDURE IN DETAIL: With the patient in left lateral decubitus position, a flexible fiberoptic Olympus gastroscope was introduced into the esophagus under direct visualization without any difficulty. An extrinsic compression was noted to extend from 26 to 28 cm from the incisors. The mucosa overlying the distal esophagus revealed some patchy areas of erythema. Minute tongues of velvety red mucosa were noted to extend proximally from the GE junction and biopsies were obtained to rule out Balderas. The scope was then advanced with ease into the stomach. Mucosa overlying the antrum and the body revealed some patchy erythema and kpas-fo-mzuvlrul edema. Biopsies were obtained and sent to stain for H. pylori. A minute polyp was noted in the distal body that was partially excised with the cold biopsy forceps. An approximately 5 mm submucosal nodule, antrum was biopsied. Pylorus was of normal contour and shape, it was intubated with ease and the scope was advanced all the way to the second portion of the duodenum. Biopsies were obtained from the proximal second portion and the duodenal bulb to rule out sprue. The scope was then withdrawn back into the stomach and retroflexed, mucosa overlying the fundus and cardia appeared to be within normal limits. The scope was then straightened out, it was subsequently withdrawn. The patient tolerated the procedure well. IMPRESSION: 1. Extrinsic compression esophagus extending from 24 to 26 cm from the incisors. 2. Distal esophagitis, mild. 3. Rule out Balderas esophagus. 4. Gastritis, biopsied, biopsies sent to stain for H. pylori. 5. Approximately 5 mm submucosal nodule, antrum biopsied. 6. Gastric polyp, distal body partially excised with cold biopsy forceps. 7. Rule out sprue. PLAN: 1. Follow up histology. 2. Increase Protonix to 40 mg one p.o. a.c. b.i.d. 3. The patient will need a CT scan of the chest to delineate the nature of the extrinsic compression of the esophagus described in the body of the report. Alexis Zaldivar MD [facility] /[id number] cc: Mio Zaldivar MD
== END | disposition home or self-care (01) ==
LOC: OR 08:03
PROVIDERS: ATTEND Internal Medicine Gastroenterology
DX: K26.9 Duodenal ulcer, unspecified as acute or chronic, without hemorrhage or perforation (principal); K21.00 Gastro-esophageal reflux disease with esophagitis, without bleeding; K20.90 Esophagitis, unspecified without bleeding; K29.60 Other gastritis without bleeding; I10 Essential (primary) hypertension; M06.9 Rheumatoid arthritis, unspecified; M19.90 Unspecified osteoarthritis, unspecified site; Z20.828 Contact with and (suspected) exposure to other viral communicable diseases; Z87.19 Personal history of other diseases of the digestive system; K31.7 Polyp of stomach and duodenum
CPT/HCPCS: 36415; 43239; 85025; 88305; 88312; 93005; C9113; J2001; J2250; J2704; J2765; J3010; U0002

== ENCOUNTER → 2020-03-25 | Outpatient (CLI) | payer MEDICARE ==
[~2020-03-25] MED LIST changes: -FENTANYL CITRATE/PF 100MCG/2 ML INJ ONE; +IOPAMIDOL 370 MG/ML 200 ML INFUS..BTL INJ ONE; -LIDOCAINE HCL 2% LOCAL INJ 5 ML SDV VIAL INJ ONE; -METOCLOPRAMIDE HCL 10 MG/2ML VIAL ONE; -MIDAZOLAM HCL 2 MG/2 ML VIAL ONE; -PANTOPRAZOLE 40 MG 10ML VIAL ONE; -PROPOFOL IV EMULSION 10 MG/ML 20 ML VIAL ONE
[2020-03-25 17:25] LABS: BLOOD UREA NITROGEN 18 mg/dL (7-26); BUN/CREATININE RATIO 15 (6-25); CREATININE, SERUM 1.17 mg/dL (0.72-1.25); EST GLOMERULAR FILTRATION RATE > 60 ML/MIN (60-)
== END ==
LOC: CT 16:34
PROVIDERS: ATTEND Internal Medicine Gastroenterology
DX: K76.0 Fatty (change of) liver, not elsewhere classified (principal); I25.10 Atherosclerotic heart disease of native coronary artery without angina pectoris
CPT/HCPCS: 36415; 71260; 82565; 84520; Q9967

== ENCOUNTER → 2020-11-06 | Day surgery (SDC) | payer MEDICARE ==
[2020-11-05 10:09] LABS: BASOPHILS # (AUTO) 0.1 (0.0-0.1); BASOPHILS % 0.6 % (0.0-1.0); EOSINOPHILS # (AUTO) 0.3 (0.0-0.4); EOSINOPHILS % 2.3 % (0.0-6.0); HEMATOCRIT 46.9 % (38.2-49.6); LYMPHOCYTES # (AUTO) 1.5 (1.0-3.2); LYMPHOCYTES % 13.9 % (18.0-39.1); MEAN CORPUSCULAR HEMOGLOBIN 30.3 pg (28-32); MEAN CORPUSCULAR VOLUME 94.7 fL (81-99); MONOCYTES # (AUTO) 1.4 (0.2-0.8); MONOCYTES % 12.5 % (4.4-11.3); NEUTROPHILS # (AUTO) 7.6 (2.1-6.9); NEUTROPHILS % 70.1 % (38.7-80.0); PLATELET COUNT 222 x10e3/uL (140-360); RED BLOOD COUNT 4.95 x10e6/uL (4.3-5.7); RED CELL DISTRIBUTION WIDTH 14.9 % (11.7-14.4)
[~2020-11-06] MED LIST changes: +FENTANYL CITRATE/PF 100MCG/2 ML INJ ONE; +FLOMAX0.4 MG PO; -IOPAMIDOL 370 MG/ML 200 ML INFUS..BTL INJ ONE; +LIDOCAINE HCL 2% LOCAL INJ 5 ML SDV VIAL INJ ONE; +MIDAZOLAM HCL 2 MG/2 ML VIAL ONE; +OXYBUTYNIN CHLOR5 MG PO; +PROPOFOL IV EMULSION 10 MG/ML 20 ML VIAL ONE; +RITUXAN10 MG/1 ML IV; +SIMETHICONE 40 MG/0.6 ML BTL ONE; -SODIUM CHLORIDE 0.9% 50ML 50 ML ONE; +ZINC PO
[2020-11-06 08:29] VITALS: BP 144/72
== END | disposition home or self-care (01) ==
LOC: ENDO 05:49
PROVIDERS: ATTEND Internal Medicine Gastroenterology
DX: K22.2 Esophageal obstruction (principal); K31.7 Polyp of stomach and duodenum; K29.70 Gastritis, unspecified, without bleeding; K20.90 Esophagitis, unspecified without bleeding; K31.89 Other diseases of stomach and duodenum; K21.9 Gastro-esophageal reflux disease without esophagitis; G47.33 Obstructive sleep apnea (adult) (pediatric); I25.10 Atherosclerotic heart disease of native coronary artery without angina pectoris; I25.2 Old myocardial infarction; E78.5 Hyperlipidemia, unspecified; I10 Essential (primary) hypertension; M54.9 Dorsalgia, unspecified; H91.90 Unspecified hearing loss, unspecified ear; Z95.5 Presence of coronary angioplasty implant and graft; M06.9 Rheumatoid arthritis, unspecified; Z88.8 Allergy status to other drugs, medicaments and biological substances; Z01.810 Encounter for preprocedural cardiovascular examination; Z01.812 Encounter for preprocedural laboratory examination; Z68.38 Body mass index [BMI] 38.0-38.9, adult; Z85.828 Personal history of other malignant neoplasm of skin; Z80.0 Family history of malignant neoplasm of digestive organs
CPT/HCPCS: 36415; 43239; 43450; 85025; 88305; 88312; 93005; J2001; J2250; J2704; J3010

== ENCOUNTER → 2020-11-29 | Outpatient (CLI) | payer MEDICARE ==
[~2020-11-29] MED LIST changes: -FENTANYL CITRATE/PF 100MCG/2 ML INJ ONE; -LIDOCAINE HCL 2% LOCAL INJ 5 ML SDV VIAL INJ ONE; -MIDAZOLAM HCL 2 MG/2 ML VIAL ONE; -PROPOFOL IV EMULSION 10 MG/ML 20 ML VIAL ONE; -SIMETHICONE 40 MG/0.6 ML BTL ONE
== END ==
LOC: DX 09:28
PROVIDERS: ATTEND Internal Medicine Gastroenterology
DX: R13.10 Dysphagia, unspecified (principal); Z20.822 Contact with and (suspected) exposure to COVID-19
CPT/HCPCS: 74230; 92526; 92611; U0002

== ENCOUNTER → 2021-11-17 | Outpatient (CLI) | payer MEDICARE | LOC: RAD 12:11 | DX: M54.50 Low back pain, unspecified (principal); M25.562 Pain in left knee | CPT/HCPCS: 72110 ==